=== PATIENT | male | born 1950 | race Caucasian/White ===

== ENCOUNTER 2017-10-18 15:16 | Inpatient (IN) ==
[2017-10-18] MEDS: Pregabalin 75 MG CAPSULE PO SCH (20:08)
[2017-10-18] MEDS: traMADol 50 MG TABLET PO PRN (20:09)
[2017-10-19 07:17] LABS: Basophils % 0.3 %; Hematocrit 42.9 % (37.5-50.1); Hemoglobin 14.5 g/dL (12.9-16.9); Immature Granulocytes % 0.1 % (0-4); Lymphocytes # 1.7 K/mcL (0.6-4.6); Lymphocytes % 22.4 %; Mean Corpuscular HGB Conc 33.8 g/dL (31.6-35.5); Mean Corpuscular Hemoglobin 32.5 pg (28.0-33.3); Mean Corpuscular Volume 96.2 fL (83.0-100.0); Mean Platelet Volume 10.7 fL (9.4-12.4); Monocytes # 0.8 K/mcL (0.0-1.3); Monocytes % 10.9 %; Neutrophils # 5.1 K/mcL (1.6-8.9); Platelet Count 346 K/mcL (140-400); Red Blood Count 4.46 M/mcL (4.19-5.50); Red Cell Distribution Width 13.2 % (11.5-14.5); Segmented Neutrophils % 66.3 %
[2017-10-19 07:34] LABS: Prothrombin Time 10.6 Seconds (9.4-12.1)
[2017-10-19 07:36] LABS: Activated Partial Thrombo Time 25.6 Seconds (26.0-36.0)
[2017-10-19] MEDS: Bacitracin/Polymyxin B PACKET TP SCH ×2 (08:06→09:07)
[2017-10-19 08:46] LABS: BUN/Creatinine Ratio 24 (6-26); Blood Urea Nitrogen 20 mg/dL (8-26); Calcium 9.5 mg/dL (8.6-10.8); Carbon Dioxide 24 mEq/L (19-29); Chloride 105 mEq/L (98-109); Glucose 104 mg/dL (70-99); Osmolality,Calculated 289 (280-300); Potassium 4.2 mEq/L (3.5-4.5); Sodium 138 mEq/L (136-145); eGFR For African Americans > 60 (> 60); eGFR For Non-African Americans > 60 (> 60)
[2017-10-19] MEDS: *HR* Metformin 500 MG TABLET PO SCH ×2 (09:03→18:01)
[2017-10-19] MEDS: Aspirin 81 MG TAB.CHEW PO SCH (09:04)
[2017-10-19] MEDS: Pregabalin 75 MG CAPSULE PO SCH ×2 (09:04→20:26)
[2017-10-19] MEDS: amLODIPine 5 MG TABLET PO SCH (09:05)
[2017-10-19] MEDS: traMADol 50 MG TABLET PO PRN (09:11)
--- NOTE | 2017-10-19 16:17 | Internal Med History&Physical ---
Date of Encounter: 10/19/17 Time of Encounter: 15:45 Assessment and Plan (1) Cerebrovascular accident Current visit: No Status: Acute He will be maintained on aspirin. Further workup will be done as needed. Qualifiers: CVA mechanism: unspecified Qualified Code(s): I63.9 - Cerebral infarction, unspecified (2) Hypertension Current visit: Yes Status: Chronic Continue Norvasc and Zestril. Qualifiers: Hypertension type: essential hypertension Qualified Code(s): I10 - Essential (primary) hypertension (3) DM type 2 (diabetes mellitus, type 2) Current visit: Yes Status: Acute Continue Glucophage and do Accu-Cheks with SSI. Qualifiers: Diabetes mellitus complication status: with unspecified complications Diabetes mellitus termite control representative insulin use: without termite control representative use Qualified Code( s): E11.8 - Type 2 diabetes mellitus with unspecified complications (4) Chronic low back pain Current visit: Yes Status: Acute Continue scheduled tramadol and Lyrica. Qualifiers: Back pain laterality: unspecified Qualified Code(s): M54.5 - Low back pain ; G89.29 - Other chronic pain; G89.29 - Other chronic pain (5) Hyperlipidemia Current visit: Yes Status: Acute Continue Lipitor Qualifiers: Hyperlipidemia type: unspecified Qualified Code(s): E78.5 - Hyperlipidemia , unspecified Internal Medicine - H&P: HPI Chief complaint: Stroke with right sided weakness Admitted From: Hospital to Hospital Transfer Plans for Post Hospital Care: Home History of present illness: Mr. Rivera is a 67 year old male who came to [facility] emergency room October 14 with stroke symptoms. He was diagnosed to have acute ischemic changes in the right MCA distribution with no hemorrhage. He was transferred to [facility] for additional testing and intervention. It was felt at [facility] the right sided infarcts were old and stable but there was a new left internal capsule area infarct causing his right-sided weakness. He was stabilized and admitted to [facility] swing bed for rehabilitation therapy prior to returning home to independent living. He denies previous large distribution strokes. He denies seizures or other neurologic problems. Past Med Surg Social Fam HX - Past Medical History Medical history: CHF, diabetes, hyperlipidemia, hypertension Psychiatric history: no psych history - Social History Smoking Status: Current every day smoker Packs per day: 1 Smokeless Tobacco Status: No Alcohol use: occasionally Drug use: none Internal Medicine - H&P: Meds Furosemide [Lasix] 40 mg PO BID 10/14/17 [History] Lisinopril [Zestril] 2.5 mg PO DAILY 10/14/17 [History] Sildenafil Citrate [Viagra] 50 mg PO 10/14/17 [History] Simvastatin [Zocor] 20 mg PO HS 10/14/17 [History] Tamsulosin HCl [Flomax] 0.4 mg PO HS 10/14/17 [History] amLODIPine [Norvasc] 5 mg PO DAILY 10/14/17 [History] 3 Allergy/AdvReac Type Severity Reaction Status Date / Time No Known Allergies Allergy Verified 10/14/17 23:00 All Systems PM: A 10-system review of systems was performed and is negative for pertinent findings except as documented above in the HPI. Review of systems: Gen.: He states his weight has been stable the past few months Cardiovascular: He has history of hypertension but denies TN heart failure angina DVT or pulmonary embolus Respiratory: He smoked from age [age] up to 1 pack per day. He denies known COPD. He reports negative workup for SARA in the past. 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 GI: He denies disorders of his liver gallbladder or exocrine pancreas : He has BPH but denies other kidney bladder prostate disorders Neurologic: Per history of present illness Endocrine: He was diagnosed with DM 2 approximately 2008. He was found to have thyroid nodules on recent stay at [facility]. He reports biopsy will be done by the OR. 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 He has left heel spur and had a back fracture in the past. He denies gout. - Constitutional Vitals: Temp Pulse Resp BP Pulse Ox 98.1 F 73 16 105/56 97 10/19/17 09:32 10/19/17 11:52 10/19/17 11:52 10/19/17 11:52 10/19/17 11:52 Exam: Gen.: He is a well-developed well-nourished male who appears in no acute distress HEENT: Head is atraumatic and normocephalic. Eyes: EOMI except he could not rotate the left eye laterally past midline. There is no scleral icterus. Mouth : Mucosa is moist. Neck: Supple and nontender. There is no thyromegaly or adenopathy noted. Heart: Regular without murmurs gallops or ectopics Lungs: No wheezes or crackles are heard. Abdomen: Soft and nontender. No masses or guarding are noted. Extremities: There is no cyanosis edema or clubbing noted. Dorsalis pedis and posttibial pulses are trace palpable bilaterally. He status post left below elbow amputation. The right arm shows some ecchymosis in the forearm from IV infiltration. Neurologic: Mental status: He is talkative and a good historian. Cranial nerves : Smile is symmetric. Forehead wrinkles bilaterally. Tongue protrudes midline. EOMI except for lateral left eye movement as per above. Motor: There is no pronator drift on the right arm. He has left below elbow amputation. Cerebellar: Finger to nose is intact with right arm Skin: Warm and dry Internal Med - H&P Results - Labs CBC & Chem 7: 10/19/17 05:54 10/19/17 05:54 Labs: Short CBC 10/19/17 Range/Units 05:54 WBC 7.6 (4.3-11.1) K/mcL Hgb 14.5 (12.9-16.9) g/dL Hct 42.9 (37.5-50.1) % Plt Count 346 (140-400) K/mcL Neutrophils # 5.1 (1.6-8.9) K/mcL BMP 10/19/17 05:54 Sodium 138 Potassium 4.2 Chloride 105 Carbon Dioxide 24 BUN 20 Creatinine 0.85 Glucose 104 H Calcium 9.5 - VTE Documentation of Mechanical Device: Graduated compression elastic hosiery
[2017-10-19] MEDS: traMADol 50 MG TABLET PO SCH ×2 (18:02→20:26)
[2017-10-20] MEDS: traMADol 50 MG TABLET PO SCH ×3 (08:38→21:38)
[2017-10-20] MEDS: amLODIPine 5 MG TABLET PO SCH (08:38)
[2017-10-20] MEDS: Pregabalin 75 MG CAPSULE PO SCH ×2 (08:38→21:39)
[2017-10-20] MEDS: Aspirin 81 MG TAB.CHEW PO SCH (08:41)
[2017-10-20] MEDS: *HR* Metformin 500 MG TABLET PO SCH ×2 (08:41→16:34)
--- NOTE | 2017-10-20 14:33 | Internal Med Progress Note ---
Date of Encounter: 10/20/17 Time of Encounter: 14:25 - Assessment and plan (1) Cerebrovascular accident Current Visit: No Status: Acute Assessment and plan: October 19. Continue aspirin Qualifiers: CVA mechanism: unspecified Qualified Code(s): I63.9 - Cerebral infarction, unspecified (2) Hypertension Current Visit: Yes Status: Chronic Assessment and plan: October 20. We will discontinue Norvasc secondary to edema and increase lisinopril dose to 10 mg daily. Qualifiers: Hypertension type: essential hypertension Qualified Code(s): I10 - Essential (primary) hypertension (3) DM type 2 (diabetes mellitus, type 2) Current Visit: Yes Status: Acute Assessment and plan: October 20. Continue Glucophage and do Accu-Cheks with SSI Qualifiers: Diabetes mellitus complication status: with unspecified complications Diabetes mellitus custodial insulin use: without custodial use Qualified Code( s): E11.8 - Type 2 diabetes mellitus with unspecified complications (4) Chronic low back pain Current Visit: Yes Status: Acute Assessment and plan: October 20. Continue tramadol and Lyrica Qualifiers: Back pain laterality: unspecified Qualified Code(s): M54.5 - Low back pain ; G89.29 - Other chronic pain; G89.29 - Other chronic pain (5) Hyperlipidemia Current Visit: Yes Status: Acute Assessment and plan: October 20. Continue Lipitor Qualifiers: Hyperlipidemia type: unspecified Qualified Code(s): E78.5 - Hyperlipidemia , unspecified - Subjective Interval history: October 20. He has no new complaints and feels well. - Constitutional Vitals: Temp Pulse Resp BP Pulse Ox 98.1 F 67 18 119/62 97 10/20/17 06:41 10/20/17 06:41 10/20/17 06:41 10/20/17 06:41 10/20/17 06:41 Exam: His resting comfortably in bed. His affect is bright and cheerful. He has trace to 1+ edema of his lower legs bilaterally. I reviewed his medications and lab results. Internal Medicine: Result - Labs CBC & Chem 7: 10/19/17 05:54 10/19/17 05:54 - ABG Interpretation ABG results: PT/INR, D-dimer PT 10.6 Seconds (9.4-12.1) 10/19/17 05:54 - VTE Documentation of Mechanical Device: Graduated compression elastic hosiery Consult Discharge Plan - Plan [facility]errals: [facility]Primary Care Provider[facility] - 1 week
[2017-10-21] MEDS: traMADol 50 MG TABLET PO SCH ×3 (07:36→21:37)
[2017-10-21] MEDS: Pregabalin 75 MG CAPSULE PO SCH ×2 (07:36→21:37)
[2017-10-21] MEDS: *HR* Metformin 500 MG TABLET PO SCH ×2 (07:36→17:01)
[2017-10-21] MEDS: Aspirin 81 MG TAB.CHEW PO SCH (07:36)
[2017-10-22] MEDS: Pregabalin 75 MG CAPSULE PO SCH ×2 (08:32→22:11)
[2017-10-22] MEDS: traMADol 50 MG TABLET PO SCH ×3 (08:32→22:14)
[2017-10-22] MEDS: *HR* Metformin 500 MG TABLET PO SCH ×2 (08:32→18:03)
[2017-10-22] MEDS: Aspirin 81 MG TAB.CHEW PO SCH (08:33)
[2017-10-23] MEDS: Pregabalin 75 MG CAPSULE PO SCH ×2 (09:46→20:55)
[2017-10-23] MEDS: *HR* Metformin 500 MG TABLET PO SCH ×2 (09:46→17:27)
[2017-10-23] MEDS: Aspirin 81 MG TAB.CHEW PO SCH (09:46)
[2017-10-23] MEDS: traMADol 50 MG TABLET PO SCH ×2 (09:46→17:27)
--- NOTE | 2017-10-23 12:30 | Internal Med Progress Note ---
Date of Encounter: 10/23/17 Time of Encounter: 12: - Assessment and plan (1) Cerebrovascular accident Current Visit: No Status: Inactive Assessment and plan: October 19. Continue aspirin Qualifiers: CVA mechanism: unspecified Qualified Code(s): I63.9 - Cerebral infarction, unspecified (2) Hypertension Current Visit: Yes Status: Chronic Assessment and plan: October 20. We will discontinue Norvasc secondary to edema and increase lisinopril dose to 10 mg daily. October 23. Continue lisinopril. Will add Bumex to lessen edema. Qualifiers: Hypertension type: essential hypertension Qualified Code(s): I10 - Essential (primary) hypertension (3) DM type 2 (diabetes mellitus, type 2) Current Visit: Yes Status: Acute Assessment and plan: October 20. Continue Glucophage and do Accu-Cheks with SSI Qualifiers: Diabetes mellitus complication status: with unspecified complications Diabetes mellitus termite technician insulin use: without termite technician use Qualified Code( s): E11.8 - Type 2 diabetes mellitus with unspecified complications (4) Chronic low back pain Current Visit: Yes Status: Acute Assessment and plan: October 20. Continue tramadol and Lyrica Qualifiers: Back pain laterality: unspecified Qualified Code(s): M54.5 - Low back pain ; G89.29 - Other chronic pain; G89.29 - Other chronic pain (5) Hyperlipidemia Current Visit: Yes Status: Acute Assessment and plan: October 20. Continue Lipitor Qualifiers: Hyperlipidemia type: unspecified Qualified Code(s): E78.5 - Hyperlipidemia , unspecified - Subjective Interval history: October 20. He has no new complaints and feels well. October 23. He has no new complaints. He states his edema has not changed significantly off Norvasc. - Constitutional Vitals: Temp Pulse Resp BP Pulse Ox 98.4 F 69 16 125/61 98 10/23/17 05:39 10/23/17 05:39 10/23/17 05:39 10/23/17 05:39 10/23/17 05:39 Exam: He is resting comfortably on the side of the bed and appears in no acute distress. He has 1+ edema both lower anterior little area. His affect is bright and cheerful. I reviewed his medications and lab results. Internal Medicine: Result - Labs CBC & Chem 7: 10/19/17 05:54 10/19/17 05:54 - ABG Interpretation ABG results: PT/INR, D-dimer PT 10.6 Seconds (9.4-12.1) 10/19/17 05:54 - VTE Documentation of Mechanical Device: Graduated compression elastic hosiery Consult Discharge Plan - Plan [facility]errals: [facility] [Primary Care Provider] - 1 week
[2017-10-24] MEDS: traMADol 50 MG TABLET PO SCH ×4 (02:34→20:06)
[2017-10-24] MEDS: Aspirin 81 MG TAB.CHEW PO SCH (08:44)
[2017-10-24] MEDS: Pregabalin 75 MG CAPSULE PO SCH ×2 (08:44→20:07)
[2017-10-24] MEDS: *HR* Metformin 500 MG TABLET PO SCH ×2 (08:44→16:50)
[2017-10-25 06:56] VITALS: BP 128/60
[2017-10-25] MEDS: traMADol 50 MG TABLET PO SCH (08:48)
[2017-10-25] MEDS: Pregabalin 75 MG CAPSULE PO SCH (08:48)
[2017-10-25] MEDS: Aspirin 81 MG TAB.CHEW PO SCH (08:49)
[2017-10-25] MEDS: *HR* Metformin 500 MG TABLET PO SCH (08:49)
--- NOTE | 2017-10-25 09:52 | Discharge Summary ---
Date of Encounter: 10/25/17 Time of Encounter: 09:45 - Discharge Diagnosis (1) Cerebrovascular accident Priority: Primary Status: Inactive Qualifiers: CVA mechanism: unspecified Qualified Code(s): I63.9 - Cerebral infarction, unspecified (2) Hypertension Priority: Secondary Status: Chronic Qualifiers: Hypertension type: essential hypertension Qualified Code(s): I10 - Essential (primary) hypertension (3) DM type 2 (diabetes mellitus, type 2) Priority: Secondary Status: Chronic Qualifiers: Diabetes mellitus complication status: with unspecified complications Diabetes mellitus exterminator helper insulin use: without exterminator helper use Qualified Code( s): E11.8 - Type 2 diabetes mellitus with unspecified complications (4) Chronic low back pain Priority: Secondary Status: Chronic Qualifiers: Back pain laterality: unspecified Qualified Code(s): M54.5 - Low back pain ; G89.29 - Other chronic pain; G89.29 - Other chronic pain (5) Hyperlipidemia Priority: Secondary Status: Chronic Qualifiers: Hyperlipidemia type: unspecified Qualified Code(s): E78.5 - Hyperlipidemia , unspecified - Discharge Medications Prescriptions: Lisinopril [Zestril] 10 mg PO DAILY #30 tablet metFORMIN [Glucophage] 500 mg PO BIDWM #60 tablet Home Medications: Sildenafil Citrate [Viagra] 50 mg PO 10/14/17 [History] Simvastatin [Zocor] 20 mg PO HS 10/14/17 [History] Tamsulosin HCl [Flomax] 0.4 mg PO HS 10/14/17 [History] Furosemide [Lasix] 20 mg PO DAILY #0 10/25/17 [Rx] Lisinopril [Zestril] 10 mg PO DAILY #30 tablet 10/25/17 [Rx] metFORMIN [Glucophage] 500 mg PO BIDWM #60 tablet 10/25/17 [Rx] Allergies/Adverse Reactions: 3 Allergy/AdvReac Type Severity Reaction Status Date / Time morphine AdvReac Difficulty Verified 10/20/17 11:40 Breathing Date of admission: 10/18/17 17:14 [facility] care physician: [facility] Consults: 10/18/17 18:56 Consult to Occupational Therapy [CONS] Routine Comment: eval, develop, and implement POC Reason for Consult: eval, develop, and implement POC Consult to Physical Therapy [CONS] Routine Comment: eval, develop, and implement POC Reason for Consult: eval, develop, and implement POC Consult to Trust Clerk [CONS] Routine Reason for SW Consult: possible HH 10/18/17 18:58 Consult to Speech Therapy [CONS] Routine Comment: Evaluate, develop and implement POC Reason for Consult: eval, develop, and implement POC Call Completed: No - Patient Status Disposition: Home, Self-Care Condition: Good Overall status at discharge: patient is progressing back to baseline - Discharge Instructions Follow Up With: [facility] [Primary Care Provider[facility] - 1 week - Diet and Activity Activity: as per physical therapy Diet: advance to your usual diet Hospital course: Mr. Rivera is a 67 year old male who came to [facility] emergency room October 14 with stroke symptoms. He was diagnosed to have acute ischemic changes in the right MCA distribution with no hemorrhage. He was transferred to [facility] for additional testing and intervention. It was felt at [place] [facility] the right sided infarcts were old and stable but there was a new left internal capsule area infarct causing his right-sided weakness. He was stabilized and admitted to [facility] swing bed for rehabilitation therapy prior to returning home to independent living. Initial orders were written by the emergency room physician. I saw him on October 19 and performed the swing bed history and physical. He had physical therapy and occupational therapy evaluations with ongoing interventions. He made satisfactory progress. He was maintained on aspirin for CVA. Norvasc was discontinued because of edema. Zestril was increased to 10 mg daily. His blood pressure showed adequate control and his edema lessened. He will remain on this regimen at discharge and decrease Lasix to 20 mg daily. There were no other new problems and on October 25 arrangements were completed for him to be discharged home. He will follow with his PCP at [facility] within one week. He will receive outpatient physical therapy with initial appointment scheduled for 11/12/2017 at 9:30 - Time Spent with Patient Total time spent providing and/or coordinating discharge services: - Constitutional Vitals: Temp Pulse Resp BP Pulse Ox 98.1 F 69 18 128/60 95 10/25/17 06:55 10/25/17 06:55 10/25/17 06:55 10/25/17 06:55 10/25/17 06:55 - VTE Documentation of Mechanical Device: Graduated compression elastic hosiery
== END 2017-10-25 10:35 | disposition home or self-care (01) | DRG 57 ==
LOC: INPPIK 17:14
PROVIDERS: ADMIT Internal Medicine; ATTEND Internal Medicine